=== PATIENT | male | born 1960 | race Caucasian/White ===

== ENCOUNTER 2025-03-15 00:20 | Emergency (ER) | payer MEDICARE, MEDICAID ==
[~2025-03-15] VITALS: Ht 177.8 cm; Wt 90.9 kg
[~2025-03-15 00:20] MED LIST: NO HOME MEDS
--- NOTE | 2025-03-15 00:53 | ELECTROCARDIOGRAPH REPORT ---
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 KALEB Cintron Measurements Intervals [place] Rate: 86 P: 64 SC: 148 QRS: -31 QRSD: 95 T: 62 QT: 379 QTc: 454 Interpretive Statements Sinus rhythm Left axis deviation Abnormal R-wave progression, early transition Electronically Signed On 03-17-2025 19:22:[address] KALEB Cintron Please click the below link to view image of tracing.
--- NOTE | 2025-03-15 00:54 | Physician Documentation ---
History of Present Illness General Chief Complaint: Hypertension Stated Complaint: HIGH BP Time Seen by MD: 00:33 Primary Medical Doctor: SHERI OLIVEIRA Mode of Arrival: POV History of Present Illness Initial Comments Patient is a 64-year-old male who complains of some slight chest discomfort, the patient states that he has had a history recently of having some pain when he swallows and he feels like the pain he is having his coming from his esophagus. He states he has has a slight discomfort since proximally 1900 today. The patient states he has intermittently had some elevated blood pressures at home but he is not currently on blood pressure medication. The patient denies any cardiac history. The patient does have history of anxiety as well as panic attacks. The patient's symptoms are mild and persistent he denies any shortness of breath he denies any fevers chills nausea or vomiting. Medication Reconciliation Allergies: Coded Allergies: indomethacin (Unverified Allergy, Intermediate, 03/15/25) indomethacin sodium (Unverified Allergy, Intermediate, 03/15/25) Miscellaneous Medications Home Med List (No Home Medications), (Reported) Past Medical History Past Medical History: Hepatitis C, Hernia, *PSYCH*, Schizophrenia Past Surgical History: abdominal surgery Smoking: Quit less than 1 year Alcohol Use: Abuse Lives with: Spouse Lives In: Home Occupation: disabled Review of Systems All Other Systems at this time: Reviewed and Negative Physical Exam Physical Exam Vital Signs: Temperature: 96.8, Source: Oral, Heart Rate: 91, Respiratory Rate: 14, BP: 180/97, Pulse Oximetry: 99, Weight: 90.900 Oxygen Flow Rate: 0 Physical Exam VITALS: Reviewed and as above. GENERAL: Alert, no apparent distress. HEENT: Normocephalic, atraumatic, PERRL, EOMI, dry mucosa, no erythema RESPIRATORY: Lungs clear, normal breath sounds, no respiratory distress. CHEST: No accessory muscle use, no retractions CV: Regular rate, rhythm, no edema, no murmur, No: JVD GI: Soft, non-tender, bowels sounds present, no rebound, guarding, or rigidity BACK: No CVA tenderness, or swelling MUSCULOSKELETAL: No deformities, no edema SKIN: Warm and dry, no rash NEURO: Oriented x4, No motor or sensory deficit PSYCH: Normal mood and affect, no agitation Progress Results/Orders Results/Orders Orders - OHLFS,STACEY R MD Chest,Single View (03/15/25 01:05) Monitor (03/15/25 00:41) Saline Lock (03/15/25 00:41) Oxygen (03/15/25 00:41) BMP (03/15/25 00:41) PBNP (03/15/25 00:41) Hs Troponin I W Calculations (03/15/25 00:41) Hs Troponin I W Calculations (03/15/25 02:41) Hs Troponin I W Calculations (03/15/25 03:41) Completed Orders - STACEY HAMILTON MD Chest,Single View (03/15/25 01:05) Cbc/Diff (03/15/25 00:41) Electrocardiogram (03/15/25 00:41) Atenolol Tablet (Tenormin Tablet) (03/15/25 01:10) Vital Signs 03/15/25 03/15/25 03/15/25 00:27 00:45 00:46 Temp 96.8 96.8 Pulse 94 91 Resp 15 14 B/P (MAP) 182/95 180/97 (124) Pulse Ox 99 99 O2 Flow Rate 0 Laboratory Tests Test 03/15/25 00:55 White Blood Count 7.9 Red Blood Count 4.75 Hemoglobin 15.8 Hematocrit 44.7 Mean Corpuscular Volume 94.0 Mean Corpuscular Hemoglobin 33.1 H Mean Corpuscular Hemoglobin Concent 35.2 Red Cell Distribution Width 12.7 Platelet Count 260 Mean Platelet Volume 7.2 L Neutrophils (%) (Auto) 62.4 Lymphocytes (%) (Auto) 30.9 Monocytes (%) (Auto) 5.4 Eosinophils (%) (Auto) 0.4 Basophils (%) (Auto) 0.9 Neutrophils # (Auto) 4.9 Lymphocytes # (Auto) 2.4 Monocytes # (Auto) 0.4 Eosinophils # (Auto) 0.0 Basophils # (Auto) 0.1 CBC Comment Chemistry Comments Heart Score: Heart Score Response (Comments) Value History Slightly Suspicious 0 EKG Normal 0 Age >65 2 Risk Factors No known risk factors 0 Troponin Normal limit 0 Total 2 Departure Disposition: 01 HOME / SELF CARE / HOMELESS Impression: Primary Impression: Benign essential hypertension Additional Impression: Nonspecific chest pain Discharge Instructions: Nonspecific Chest Pain, Adult, [id number] Referrals: NO PRIMARY CARE PROVIDER (PCP) OHLFS,STACEY Jeter MD Mar 15, 2025 00:54
[2025-03-15 01:03] LABS: MEAN PLATELET VOLUME 7.2 FL (7.4-10.4); RED CELL DISTRIBUTION WIDTH 12.7 % (11.5-14.5)
--- NOTE | 2025-03-15 01:13 | RADIOLOGY REPORT ---
CHEST RADIOGRAPH Indication: CP Technique: Single frontal view of the chest was obtained COMPARISON: None FINDINGS: Lungs and pleural spaces are clear. Cardiac silhouette and lanie are within normal limits. Bones and soft tissues demonstrate no significant abnormality. IMPRESSION: No acute disease.
[2025-03-15 01:27] LABS: CREATININE 1.12 MG/DL (0.60-1.10); PRO BRAIN NATRIURETIC PEPTIDE 112 PG/ML (0-125); TOTAL CARBON DIOXIDE 27.2 MMOL/L (24-32); eCRCL 68 ML/MIN; eGFR 66 ML/MIN
[2025-03-15 02:15] VITALS: BP 147/92; PULSE 66; RESP 16; TEMP 96.8; O2SAT 96
== END 2025-03-15 02:20 | disposition home or self-care (01) ==
LOC: ER 00:21
DX: I10 Essential (primary) hypertension (principal); R07.89 Other chest pain; R06.02 Shortness of breath; F20.9 Schizophrenia, unspecified; F10.10 Alcohol abuse, uncomplicated; Y90.9 Presence of alcohol in blood, level not specified
CPT/HCPCS: 36415; 71045; 80048; 83880; 84484; 85025; 93005; 99285